=== PATIENT | male | born 1990 | race African-American/Black ===

== ENCOUNTER 2017-03-12 23:59 | Emergency (ER) | payer OTHER ==
--- NOTE | ~2017-03-12 | CR157 ---
[facility] A Service of [facility] RADIOLOGY TEXT RESULTS PATIENT: AMELIA HIGGINBOTHAM LOCATION: [facility] : [birth year] UNIT #: [id number] AGE: [address]: Sara Estrada MD SEX: M ORDER DR: [id number] [facility] [address] [place], [place] [address] [id number] MR#: [id number] Acc #: [id number] NAME: AMELIA HIGGINBOTHAM : 1990 SEX: M STUDY DATE/TIME: 03/13/2017 0:39 UNIT: JAZZ ROOM: STUDY DESCRIPTION: CR Humerus Min 2 View Rt Attending Physician: Sara Estrada M.D. Ordering Physician: Sara Estrada M.D. Primary Care Physician: No Primary Care Physician MEDICAL IMAGING REPORT This report is preliminary unless electronic signature is present EXAM Right humerus HISTORY Glass cuts to right arm injury today. FINDINGS Multiple views of right arm demonstrates no fracture deformity. No radiopaque foreign body. Visualized elbow and shoulder joint unremarkable. IMPRESSION Negative right upper arm Dictated by... Brady Hernandez M.D. THIS IS AN ELECTRONICALLY VERIFIED REPORT Brady Hernandez M.D. at 03/13/2017 5:56 AM JASBIR/cirilo TD: 03/13/2017 03:42 JOB #: [id number] MEDICAL IMAGING REPORT Page 1 of 1 COPY
[~2017-03-12 23:59] MED LIST: BACTRIM DS TABL1 TA1 PO; HYDROCODONE-APA1 T55 PO; NO MEDICATIONS
== END 2017-03-13 01:42 | disposition home or self-care (01) ==
LOC: CED 23:59
DX: S41.111A Laceration without foreign body of right upper arm, initial encounter (principal); F17.210 Nicotine dependence, cigarettes, uncomplicated; Z79.899 Other long term (current) drug therapy; W25.XXXA Contact with sharp glass, initial encounter; Y92.69 Other specified industrial and construction area as the place of occurrence of the external cause; Y99.0 Civilian activity done for income or pay
CPT/HCPCS: 12001; 73060; 99283

== ENCOUNTER 2017-06-08 17:16 | Emergency (ER) | payer OTHER ==
[~2017-06-08] VITALS: Ht 190.5 cm; Wt 81.6 kg
[2017-06-08 17:46] LABS: URINE SOURCE CLEAN CATCH
[2017-06-08 18:04] LABS: URINE APPEARANCE CLEAR; URINE BLOOD 1+ (NEG); URINE COLOR YELLOW; URINE GLUCOSE NORM (NORM); URINE KETONE NEG (NEG); URINE LEUKOCYTE ESTERASE 3+ (NEG); URINE NITRATE NEG (NEG); URINE PROTEIN NEG (NEG); URINE SPECIFIC GRAVITY 1.025 (1.003-1.035); URINE UROBILINOGEN NORM (NORM)
[2017-06-08 18:10] LABS: URINE BILIRUBIN NEG (NEG)
[2017-06-08 18:18] LABS: CULTURE INDICATED? YES; URINE BACTERIA AUWI 1+ (NEGATIVE); UWBCS1 AUWI 25-50 (0-5)
[2017-06-08 18:19] LABS: URINE MUCUS PRESENT; URINE SQUAMOUS EPITHELIAL CELL FEW /[HPF]
[2017-06-11 08:43] LABS: CHLAMYDIA TRACH Detected (Not Detected); N GONOR Detected (Not Detected)
== END 2017-06-08 18:34 | disposition home or self-care (01) ==
LOC: CFTX 17:16 → CED 17:16 → CFTX 17:55
PROVIDERS: Physician Assistant
DX: N34.2 Other urethritis (principal)
CPT/HCPCS: 81003; 87086; 87491; 87591; 96372; 99283; J0696

== ENCOUNTER 2017-06-21 20:09 | Emergency (ER) | payer OTHER ==
[~2017-06-21] VITALS: Ht 190.5 cm; Wt 81.6 kg
[2017-06-21 20:46] LABS: BASOPHIL% 0.8 % (0-2.5); DIFF IND NO; EOSINOPHIL# 0.1 X10e3 (0-0.7); HEMATOCRIT 40.6 % (38.0-50.0); HEMOGLOBIN 13.3 gm/dL (13.0-16.0); LYMPHOCYTE# 2.1 X10e3 (1.0-3.5); LYMPHOCYTE% 36.7 % (17.0-45.0); MEAN CELL VOLUME 91.1 FL (83-96); MEAN CORPUSCULAR HEMOGLOBIN 29.8 PG (28-34); MEAN CORPUSCULAR HGB CONC 32.7 g/dL (30-36); MEAN PLATELET VOLUME 8.9 FL (6.5-11.5); MONOCYTE# 0.4 X10e3 (0-1.0); MONOCYTE% 6.3 % (3.0-12.0); NEUTROPHIL# 3.1 X10e3 (1.5-7.1); NEUTROPHIL% 55.2 % (40-75); PLATELET COUNT 179 X10e3 (140-420); RED BLOOD COUNT 4.45 X10e (3.90-5.60); RED CELL DISTRIBUTION WIDTH 13.5 % (11.0-15.5); WHITE BLOOD COUNT 5.6 X10e3 (4.0-10.5)
[2017-06-21 21:07] LABS: BUN/CREATININE RATIO 9.16; CALCIUM SERUM 8.9 mg/dL (8.4-10.2); CREATININE SERUM 1.2 mg/dL (0.6-1.4); GLOM FILT RATE Estimated 96.9 mL/min (>60); POTASSIUM 3.7 mmol/L (3.5-5.1)
[2017-06-21 21:12] LABS: URINE SOURCE CLEAN CATCH
[2017-06-21 21:23] LABS: URINE APPEARANCE CLEAR; URINE BILIRUBIN NEG (NEG); URINE BLOOD NEG (NEG); URINE COLOR YELLOW; URINE GLUCOSE NEG (NEG); URINE KETONE NEG (NEG); URINE LEUKOCYTE ESTERASE TRACE (NEG); URINE NITRATE NEG (NEG); URINE PROTEIN NEG (NEG); URINE SPECIFIC GRAVITY 1.017 (1.003-1.035)
[2017-06-21 21:28] LABS: CULTURE INDICATED? YES; URBCS1 AUWI 0-2 /[HPF] (0-2); URINE BACTERIA AUWI NEG (NEGATIVE); URINE SQUAMOUS EPITHELIAL CELL NONE SEEN /[HPF]
[2017-06-23 23:37] LABS: CHLAMYDIA TRACH Not Detected (Not Detected); N GONOR Not Detected (Not Detected)
== END 2017-06-21 22:08 | disposition home or self-care (01) ==
LOC: CED 20:09 → CFTX 20:09
PROVIDERS: Nurse Practitioner
DX: R31.9 Hematuria, unspecified (principal)
CPT/HCPCS: 36415; 80048; 81003; 85025; 87086; 87491; 87591; 96360; 99283